=== PATIENT | male | born 1970 | race Caucasian/White ===

== ENCOUNTER 2017-04-25 09:42 | Outpatient (CLI) | payer OTHER ==
--- NOTE | 2017-04-25 11:36 | ULT ---
SCROTAL ULTRASOUND: DATE: 04/25/17. COMPARISON: None. HISTORY: Scrotal pain. TECHNIQUE: Multiplanar, rodriguez scale, sonographic imaging of the scrotal contents with Doppler interrogation of th e testicles including color flow and spectral analysis obtained. FINDINGS: The right testicle measures 3.6 x 1.6 x 2.2 cm and the left testicle measures 3.1 x 2.5 x 1.4 cm. Ri ght epididymal head measures 6 x 6 x 9 mm and the left epididymal head measures 6 x 7 x 6 mm. There is normal blood flow noted within both testicles. No hydrocele. No intratesticular mass. IMPRESSION: Unremarkable scrotal ultrasound. POS: [facility]
[2017-04-28 01:02] LABS: Chlamydia by PCR Not Detected (NotDetected); GC by PCR Not Detected (NotDetected)
== END 2017-04-25 09:43 | disposition home or self-care (01) ==
LOC: ULT 09:42
PROVIDERS: ATTEND Family Medicine
DX: N50.82 Scrotal pain (principal)
CPT/HCPCS: 76870; 87086; 87491; 87591; 93976

== ENCOUNTER 2018-03-31 11:10 | Emergency (ER) | payer OTHER ==
[2018-03-31 11:40] LABS: #Basophils 0.2 thou/uL (0.0-0.2); #Eosinphils 0.2 thou/uL (0.0-0.7); #Lymphocytes 1.4 thou/uL (1.20-3.40); #Monocytes 1.2 thou/uL (0.11-0.59); #Neutrophils 5.7 thou/uL (1.40-6.50); %Basophils 2.1 % (0.0-1.0); %Eosinophils 2.4 % (0.0-10.0); %Lymphocytes 15.7 % (21.0-51.0); %Monocytes 13.7 % (0.0-10.0); %Neutrophils 66.1 % (42.0-75.0); Hemoglobin 15.1 g/dL (14.0-18.0); Mean Corpuscular HGB CONC 31.5 g/dL (32.0-36.0); Mean Corpuscular Hemoglobin 27.2 pg (27.0-31.0); Mean Corpuscular Volume 86.5 fL (78.0-98.0); Mean Platelet Volume 7.9 fL (7.4-10.4); Platelet Count 326 thou/uL (130-400); RBC Distribution Width 14.3 % (11.5-14.5); Red Blood Cell (RBC) Count 5.54 mill/uL (4.70-6.10); White Blood Cell (WBC) Count 8.6 thou/uL (4.8-10.8)
--- NOTE | 2018-03-31 11:48 | RAD ---
TWO VIEWS CHEST: Comparison: None. History: Chest palpitations. Tachycardia. FINDINGS: Two views of the chest show normal sized cardiomediastinal silhouette. There is no evidence of consol idation, mass, or pleural effusion. The bones are unremarkable. IMPRESSION: No evidence of acute cardiopulmonary disease. POS: [facility]
[2018-03-31 11:56] LABS: ALT (SGPT) 48 U/L (8-55); AST (SGOT) 35 U/L (5-34); Albumin 4.3 g/dL (3.5-5.0); Alkaline Phosphatase 49 U/L (40-150); Anion Gap 12 mmol/L (10-20); BUN (Urea Nitrogen) 13 mg/dL (8.9-20.6); Bilirubin, Total 0.4 mg/dL (0.2-1.2); Calc. Creatinine Clearance 0 mL/min (70-130); Calcium 10.1 mg/dL (7.8-10.44); Carbon Dioxide 29 mmol/L (22-29); Chloride 100 mmol/L (98-107); Estimated GFR-MDRD 53; Globulin 3.1 g/dL (2.4-3.5); Glucose 95 mg/dL (70-105); Lipase 41 U/L (8-78); Potassium 3.8 mmol/L (3.5-5.1); Protein, Total 7.4 g/dL (6.0-8.3); Sodium 137 mmol/L (136-145)
[2018-03-31 12:32] LABS: Amphetamine Detected (NotDetected); Barbiturates Screen Not Detected (NotDetected); Benzodiazepine Screen Not Detected (NotDetected); Cocaine Metabolite Screen Not Detected (NotDetected); Medtox Control Line Valid? VALID (VALID); Methadone Not Detected (NotDetected); Methamphetamine Detected (NotDetected); Opiate Screen Not Detected (NotDetected); Oxycodone Screen Not Detected (NotDetected); Phencyclidine (PCP) Not Detected (NotDetected); THC/Cannabinoid Screen Not Detected (NotDetected); Tricyclic Screen Not Detected (NotDetected)
== END 2018-03-31 13:16 | disposition home or self-care (01) ==
LOC: SCSER 11:10
DX: R00.2 Palpitations (principal); F15.90 Other stimulant use, unspecified, uncomplicated; I10 Essential (primary) hypertension; F17.220 Nicotine dependence, chewing tobacco, uncomplicated; Z79.899 Other long term (current) drug therapy
CPT/HCPCS: 36415; 71046; 80053; 80306; 83690; 84443; 84484; 85025; 93005

== ENCOUNTER 2018-11-25 11:48 | Emergency (ER) | payer OTHER ==
--- NOTE | 2018-11-25 13:23 | CT ---
CT BRAIN: Date: 11/25/18 CLINICAL HISTORY: Headache. FINDINGS: No comparisons. The ventricular system appears normal in size and morphology. There is no evidence for intracranial h emorrhage or mass effect. The extracranial soft tissues and osseous structures demonstrate no acute a bnormality. IMPRESSION: No evidence for intracranial hemorrhage or mass effect. POS: [facility]
== END 2018-11-25 12:43 | disposition home or self-care (01) ==
LOC: SCSER 11:48
DX: S09.90XA Unspecified injury of head, initial encounter (principal); I10 Essential (primary) hypertension; F17.220 Nicotine dependence, chewing tobacco, uncomplicated; Z79.899 Other long term (current) drug therapy; V43.52XA Car driver injured in collision with other type car in traffic accident, initial encounter
CPT/HCPCS: 70450